=== PATIENT | male | born 1945 | race Caucasian/White ===

== ENCOUNTER → 2018-12-31 | Outpatient (CLI) | payer MEDICARE, BC ==
[~2018-12-31] MED LIST: ASPI-496 PO; ATOR40TA78 PO; CARV6.2512 PO; LISI2.5T PO
[2018-12-31 13:33] LABS: ALANINE AMINOTRANSFERASE 25 U/L (12-78); ALBUMIN 3.2 g/dL (3.4-5.0); CALCIUM 8.8 mg/dL (8.5-10.1); CREATININE 1.07 mg/dL (0.7-1.3)
[2018-12-31 13:36] LABS: ALKALINE PHOSPHATASE 108 U/L (45-117); BILIRUBIN,TOTAL 0.6 mg/dL (0.2-1.0); TOTAL PROTEIN 7.4 g/dL (6.4-8.2)
[2018-12-31 13:40] LABS: ANION GAP 3 mmol/L (5-15); CHLORIDE 107 mmol/L (98-107)
== END | disposition home or self-care (01) ==
LOC: STAR 12:25
PROVIDERS: ATTEND Otolaryngology
DX: I25.2 Old myocardial infarction (principal); J32.1 Chronic frontal sinusitis
CPT/HCPCS: 36415; 80053; 93005

== ENCOUNTER 2019-01-14 08:59 | Day surgery (SDC) | payer MEDICARE, BC ==
[~2019-01-14] VITALS: Ht 182.9 cm; Wt 117.2 kg
[~2019-01-14 08:59] MED LIST changes: +BACITRACIN OINT 500U/GM, 15 GM ONE; +EPINEPHRINE TOPICAL SOLN 1 MG/ML, 30ML ONE; +FLUORESCEIN SODIUM 500 MG/5 ML ONE; +LACTATED RINGERS 1,000 ML IV SCH; +LIDOCAINE 1%-EPI 1:100K, 30ML ONE; +OXYMETAZOLINE NASAL SPRAY 0.05%, 15ML ONE
[2019-01-14 09:38] VITALS: BP 136/89
[2019-01-14] MEDS ORDERED: MIDAZOLAM 1 MG/ML, 2ML ONE (09:42)
[2019-01-14] MEDS ORDERED: FENTANYL PF 250 MCG/5ML ONE (09:42)
[2019-01-14] MEDS ORDERED: ROCURONIUM 10MG/ML,5ML ONE (09:44)
[2019-01-14] MEDS ORDERED: ONDANSETRON 2MG/ML, 2ML ONE (09:44)
[2019-01-14] MEDS ORDERED: NEOSTIGMINE 1 MG/ML, 10ML ONE (09:44)
[2019-01-14] MEDS ORDERED: PROPOFOL 10 MG/ML, 20ML ONE (09:44)
[2019-01-14] MEDS ORDERED: GLYCOPYRROLATE 0.2MG/1ML, 5ML ONE (09:44)
[2019-01-14] MEDS ORDERED: CEFAZOLIN 1,000 MG ONE (09:44)
[2019-01-14] MEDS ORDERED: SUCCINYLCHOLINE 20 MG/ML, 10ML ONE (09:44)
[2019-01-14] MEDS ORDERED: DEXAMETHASONE 4 MG/ML, 1ML ONE (09:44)
[2019-01-14] MEDS ORDERED: CLINDAMYCIN 150 MG/ML, 6ML ONE (10:36)
[2019-01-14] MEDS ORDERED: BACITRACIN 50,000 UNIT ONE (11:11)
[2019-01-14] MEDS ORDERED: LABETALOL 5MG/ML, 20ML IV PRN (11:30)
[2019-01-14] MEDS ORDERED: HYDROmorphone 2 MG/ML, 1ML IVPush PRN (11:30)
[2019-01-14] MEDS ORDERED: hydrALAzine 20 MG/ML, 1ML IV PRN (11:30)
[2019-01-14] MEDS ORDERED: FENTANYL PF 100 MCG/2ML IV PRN (11:30)
[2019-01-14] MEDS ORDERED: DIAZEPAM 5 MG/ML, 2ML IVPush PRN (11:30)
[2019-01-14] MEDS ORDERED: KETOROLAC 30 MG/1 ML IV PRN (11:30)
[2019-01-14] MEDS ORDERED: ACETAMINOPHEN 325 MG TABLET PO PRN (11:30)
[2019-01-14] MEDS ORDERED: PROMETHAZINE 25 MG/ML, 1ML IV PRN (11:30)
[2019-01-14] MEDS ORDERED: OXYcodone 5 MG/5 ML ORAL.SOL UDC PO PRN (11:30)
[2019-01-14] MEDS ORDERED: ALBUTEROL SULFATE 2.5 MG/3 ML NPPB PRN (11:30)
[2019-01-14] MEDS ORDERED: MEPERIDINE/PF 25MG/0.5ML IVPush PRN (11:30)
[2019-01-14] MEDS ORDERED: EPHEDRINE 50 MG/ML, 1ML ONE (15:44)
== END 2019-01-14 18:30 | disposition home or self-care (01) ==
LOC: OUT 08:59
PROVIDERS: ATTEND Otolaryngology
DX: J34.2 Deviated nasal septum (principal); J32.8 Other chronic sinusitis; J32.4 Chronic pansinusitis; E78.2 Mixed hyperlipidemia; I10 Essential (primary) hypertension; I25.10 Atherosclerotic heart disease of native coronary artery without angina pectoris; I25.2 Old myocardial infarction; F15.90 Other stimulant use, unspecified, uncomplicated; Z95.5 Presence of coronary angioplasty implant and graft; Z72.89 Other problems related to lifestyle; Z79.82 Long term (current) use of aspirin
CPT/HCPCS: 30520; 31253; 31257; 31267; 87070; 87075; 87205; 88304; J0330; J0690; J1100; J2250; J2405; J2704; J3010; J3490; J7120; J2710